=== PATIENT | male | born 1965 | race Caucasian/White ===

== ENCOUNTER 2016-12-21 18:03 | Emergency (ER) | payer BC ==
--- NOTE | ~2016-12-21 | CR72 ---
[facility] A Service of [facility] & [facility] RADIOLOGY TEXT RESULTS PATIENT: ELLEN TOUSSAINT LOCATION: [facility] : 61 UNIT #: [id number] AGE: [address]: Ben Levin MD SEX: M ORDER DR: [id number] [facility] [address] [place], [place] [address] [id number] E MR#: [id number] Acc #: [id number] NAME: ELLEN TOUSSAINT : 1965 SEX: M STUDY DATE/TIME: 12/21/2016 20:31 UNIT: [facility] ROOM: STUDY DESCRIPTION: CR Chest Single View Portable Attending Physician: Ben Levin Ordering Physician: Ed Doc Jaleesa Gonzalez Primary Care Physician: Edwige Whitlock M.D. MEDICAL IMAGING REPORT This report is preliminary unless electronic signature is present EXAM Portable chest, 12/21/2016 HISTORY Chest pain beginning 1 day ago. FINDINGS A single AP portable view of the chest shows both lungs to be clear. The heart is normal in size. The mediastinal contour is normal. No significant bone abnormalities are seen. IMPRESSION Normal portable chest. Dictated by... Franc Lyman M.D. THIS IS AN ELECTRONICALLY VERIFIED REPORT Franc Lyman M.D. at 12/22/2016 7:22 AM VARUN/hammad TD: 12/22/2016 02:45 JOB #: [id number] MEDICAL IMAGING REPORT Page 1 of 1 COPY
--- NOTE | ~2016-12-21 | EKG ---
PATIENT: ELLEN TOUSSAINT UNIT #: [id number] Ventricular Rate: 71 BPM Atrial Rate: 71 BPM P-R Interval: 140 ms QRS Duration: 96 ms Q-T Interval: 376 ms QTC Calculation(Bezet): 408 ms P Medon: 54 degrees Calculated R Medon: -35 degrees Calculated T Medon: 72 degrees Diagnosis Line: Normal sinus rhythm Diagnosis Line: Left axis deviation Diagnosis Line: Voltage criteria for left ventricular hypertrophy Diagnosis Line: Nonspecific ST and T wave abnormality Diagnosis Line: Abnormal ECG Diagnosis Line: When compared with ECG of 19-MAR-2013 13:16, Diagnosis Line: (unconfirmed) Diagnosis Line: QRS axis Shifted left Diagnosis Line: Confirmed by MARKO STONE MD ([id number]) on Diagnosis Line: 12/22/2016 9:04:49 AM INTERPRETING MD: BERTHA PEARSON
[2016-12-21 19:55] LABS: BASOPHIL# 0.1 X10e3 (0-0.3); BASOPHIL% 1.3 % (0-2.5); EOSINOPHIL# 0.3 X10e3 (0-0.7); EOSINOPHIL% 4.2 % (0.0-7.0); HEMOGLOBIN 13.5 gm/dL (13.0-16.0); LYMPHOCYTE# 1.5 X10e3 (1.0-3.5); LYMPHOCYTE% 20.4 % (17.0-45.0); MEAN CELL VOLUME 85.9 FL (83-96); MEAN CORPUSCULAR HEMOGLOBIN 29.7 PG (28-34); MEAN CORPUSCULAR HGB CONC 34.6 g/dL (30-36); MEAN PLATELET VOLUME 7.6 FL (6.5-11.5); MONOCYTE# 0.7 X10e3 (0-1.0); MONOCYTE% 9.6 % (3.0-12.0); NEUTROPHIL# 4.9 X10e3 (1.5-7.1); NEUTROPHIL% 64.5 % (40-75); PLATELET COUNT 228 X10e3 (140-420); RED BLOOD COUNT 4.54 X10e (3.90-5.60); RED CELL DISTRIBUTION WIDTH 13.3 % (11.0-15.5); WHITE BLOOD COUNT 7.6 X10e3 (4.0-10.5)
[2016-12-21 19:56] LABS: DIFF IND NO
[2016-12-21 20:11] LABS: POC - CKMB 1.1 ng/mL (0.0-7.9); POC - TROPONIN <0.05 ng/mL (<=0.05)
[2016-12-21 20:20] LABS: ALBUMIN SERUM 3.9 g/dL (3.5-5.0); BILIRUBIN, DIRECT 0.1 mg/dL (0.0-0.2); BILIRUBIN,INDIRECT 0.8 mg/dL (0.0-0.9); BILIRUBIN,TOTAL 0.9 mg/dL (0.2-2.0); CALCIUM SERUM 8.6 mg/dL (8.4-10.2); CREATININE SERUM 0.9 mg/dL (0.6-1.4); GLOM FILT RATE Estimated 97.2 mL/min (>60); POTASSIUM 3.6 mmol/L (3.5-5.1); PROTEIN TOTAL SERUM 6.4 g/dL (6.0-8.3)
[2016-12-21 21:57] LABS: POC - CKMB 1.2 ng/mL (0.0-7.9); POC - TROPONIN <0.05 ng/mL (<=0.05)
== END 2016-12-21 22:12 | disposition home or self-care (01) ==
LOC: CED 18:03
PROVIDERS: Emergency Medicine
DX: R07.89 Other chest pain (principal); F41.9 Anxiety disorder, unspecified; Z87.891 Personal history of nicotine dependence
CPT/HCPCS: 36415; 71010; 80048; 80076; 82553; 84484; 85025; 93005; 99285

== ENCOUNTER → 2017-01-26 | Outpatient (CLI) | payer BC ==
--- NOTE | ~2017-01-26 | ST ---
Unit #: [id number] #: [id number] Patient: ELLEN TOUSSAINT [id number] [address] [address] [id number] O MR#: [id number] NAME: ELLEN TOUSSAINT : 1965 SEX: M STUDY DATE/TIME: 01/26/2017 UNIT: [facility] ROOM: STUDY DESCRIPTION: Exercise stress test Attending Physician: Edwige Whitlock M.D. Referring Physician: Edwige Whitlock M.D. Primary Care Physician: Edwige Whitlock M.D. CARDIOLOGY REPORT PROCEDURE PERFORMED Exercise Cardiolite stress test. PROCEDURE BASELINE EKG: Sinus bradycardia, heart rate 58 beats per minute, left atrial abnormality. The patient walked on the treadmill for 8 minutes and 30 seconds utilizing the Lui protocol, achieving a workload of 10 METS, achieving 85% of the maximum target heart rate at 142 beats per minute with a hypertensive blood pressure response of 172/102 mmHg. EKG during the test showed a 0.5 mm to [address] depression in inferior leads and nonspecific ST-T wave abnormalities in lateral leads. Rare PVC and a rare PAC. IMPRESSION 1. Functional class 3 with a workload of 10 METS. 2. Patient walked for 8 minutes and 30 seconds achieving 85% of maximum target heart rate at 142 beats per minute with a hypertensive blood pressure response of 172/102 mmHg. It was noted at the end of recovery phase the patient's blood pressure was 154/94 mmHg. 3. EKG during the test showed a 0.5 mm to [address] depression in inferior leads and nonspecific ST-T wave abnormalities. 4. The patient had no complaints of chest pain, palpitations or dizziness. Had increased shortness of breath and fatigue, which resolved in recovery phase. 5. Cardiolite was injected at maximum target heart rate. Radionuclide test pending. Please correlate with nuclear images. Dictated by... Annabella Pope A.P.R.N. for Jaleesa Shrestha/ronen TD: 01/26/2017 10:50 JOB #: [id number] Unit #: [id number] #: [id number] Patient: ELLEN TOUSSAINT CARDIOLOGY REPORT Page 1 of 1 X Annabella Pope APRN CARDIOLOGY REPORT
--- NOTE | ~2017-01-26 | TH ---
Unit #: [id number] #: [id number] Patient: ELLEN TOUSSAINT [id number] [address] [address] [id number] O MR#: [id number] NAME: ELLEN TOUSSAINT : 1965 SEX: M STUDY DATE/TIME: UNIT: [facility] ROOM: STUDY DESCRIPTION: Nuclear Study Attending Physician: Edwige Whitlock M.D. Referring Physician: Edwige Whitlock M.D. Primary Care Physician: Edwige Whitlock M.D. CARDIOLOGY REPORT EXAM Exercise Cardiolite Stress Test - Nuclear Portion DESCRIPTION Using technetium 99m labeled Cardiolite, rest and stress SPECT images were obtained. Multiple SPECT images were obtained in various views including horizontal and vertical long axis and short axis views of the left ventricle. Images were obtained by gated SPECT method. The patient was administered 12.0 mCi of Cardiolite at rest. The patient was administered 30.8 mCi of Cardiolite at peak exercise. Total exercise time is 8 minutes 30 seconds. On the stress images, there is normal perfusion noted. The rest images show normal perfusion. Comparing rest and stress images, there is no stress-induced ischemia noted. The left ventricular ejection fraction is calculated to be 51%. There is no focal wall motion abnormality seen. The left ventricular cavity size is mildly dilated, both at rest and post stress. CONCLUSION 1. No stress-induced ischemia noted. 2. The left ventricular ejection fraction is calculated to be 51%. 3. There is no focal wall motion abnormality seen. 4. The left ventricular cavity is mildly dilated, both at rest and post stress. 5. Normal nuclear portion of the stress test. Dictated by... Jaleesa Shrestha TD: 01/26/2017 13:21 JOB #: [id number] Unit #: [id number] #: [id number] Patient: ELLEN TOUSSAINT CARDIOLOGY REPORT Page 1 of 1 X Kellee Boateng MD <ELECTRONICALLY SIGNED> 03/01/17 1524 CARDIOLOGY REPORT
== END | disposition home or self-care (01) ==
LOC: CNUC 07:37
DX: R07.89 Other chest pain (principal)
CPT/HCPCS: 78452; 93017; A9500